=== PATIENT | male | born 1995 | race Caucasian/White ===

== ENCOUNTER 2016-09-20 21:55 | Emergency (ER) | payer SELFPAY ==
[2016-09-20] MEDS ORDERED: ONDANSETRON 4 MG/2 ML VIAL ONE (22:27)
[2016-09-20] MEDS ORDERED: HALOPERIDOL LACT 5 MG/ML INJ ONE (22:32)
[2016-09-20] MEDS ORDERED: HALOPERIDOL LACT 5 MG/ML INJ IVP ONE (22:43)
[2016-09-20] MEDS ORDERED: NS 1,000 ML IV ONE ×2 (22:45→23:34)
--- NOTE | 2016-09-20 23:02 | EDPHY ---
H & P Stated Complaint: Nausea and vomiting since 6pm Time Seen by Provider: 09/20/16 22:19 HPI/ROS: Chief Complaint: Nausea vomiting HPI: 21-year-old male presenting with 3 days of nausea vomiting he states every 20 minutes. Patient has a history of chronic marijuana use using about 4 g a day for the last month. Denies any abdominal pain no fevers or chills. Had 1 episode of diarrhea. Has not had a history of similar episodes in the past. Denies any fevers or chills. No body aches. No chest pain shortness of breath or cough. ROS: 10 point Review of Systems is negative except as noted in the HPI. PMH: None Surgeries: None Medications: None Allergies: No known drug allergies Social History: Positive for smoking, occasional alcohol, daily heavy marijuana use of about 4 g per day Family History: non-contributory Physical Exam: Gen: Awake, Alert, No Distress HEENT: Nose: no rhinorrhea Eyes: PERRLA, EOMI Mouth: Moist mucosa Neck: Supple, no JVD Chest: nontender, lungs clear to auscultation Heart: S1, S2 normal, no murmur Abd: Soft, non-tender, no guarding Back: no CVA tenderness, no midline tenderness Ext: no edema, non-tender Skin: no rash Neuro: CN II-XII intact, Sensation grossly intact, Strength 5/5 in bilateral upper and lower extremities - Personal History Current Tetanus/Diphtheria Vaccine: Yes - Medical/Surgical History Hx Asthma: No Hx Chronic Respiratory Disease: No Hx Diabetes: No Hx Cardiac Disease: No Hx Renal Disease: No Hx Cirrhosis: No Hx Alcoholism: No Hx HIV/AIDS: No Hx Splenectomy or Spleen Trauma: No Other PMH: denies - Social History Smoking Status: Heavy smoker Constitutional: Initial Vital Signs Temperature (C) 36.6 C 09/20/16 21:58 Heart Rate 82 09/20/16 21:58 Respiratory Rate 20 09/20/16 21:58 Blood Pressure 118/84 H 09/20/16 21:58 O2 Sat (%) 93 09/20/16 21:58 Allergies/Adverse Reactions: No Known Allergies Allergy (Unverified 09/20/16 21:58) Medical Decision Making ED Course/Re-evaluation: 21-year-old male presenting with 2 days of nausea vomiting associated with heavy marijuana use. Will give him some IV fluids and Haldol and reassess. 0005 patient is feeling significantly improved. He is tolerating p. o.. No more nausea vomiting. Patient has been counseled to decrease his cannabis use. I will refer him for outpatient primary care follow-up at the [facility]. - Data Points Medications Given: Discontinued Medications Haloperidol Lactate (Haldol Injection) 2.5 mg IVP EDNOW ONE Stop: 09/20/16 22:44 Last Admin: 09/20/16 22:46 Dose: 2.5 mg Sodium Chloride (Ns) 1,000 mls @ 0 mls/hr IV ONCE ONE PRN Reason: Wide Open Stop: 09/20/16 22:46 Last Admin: 09/20/16 22:46 Dose: 1,000 mls Sodium Chloride (Ns) 1,000 mls @ 3,000 mls/hr IV ONCE ONE Stop: 09/20/16 23:53 Last Admin: 09/20/16 23:35 Dose: 1,000 mls Departure - Departure Disposition: Home, Routine, Self-Care Clinical Impression: Cannabis abuse, Nausea & vomiting Condition: Good Instructions: Acute Nausea and Vomiting (ED) Additional Instructions: Please reduce her cannabis use as I think this is causing your symptoms. Follow up with [facility] for further evaluation. Referrals: NONE *PRIMARY CARE P,. [Primary Care Provider] - As per Instructions [facility],. [Clinic] - As per Instructions
[2016-09-21] MEDS ORDERED: ONDANSETRON 4MG PREPACK#2 BTL TAKEHOME ONE (00:07)
[2016-09-21 00:24] VITALS: BP 112/70; PULSE 79; RESP 16; TEMP 98.6; O2SAT 94
== END 2016-09-21 00:24 | disposition home or self-care (01) ==
DX: R11.2 Nausea with vomiting, unspecified (principal); F12.10 Cannabis abuse, uncomplicated; F17.200 Nicotine dependence, unspecified, uncomplicated
CPT/HCPCS: 96374; J2405